=== PATIENT | female | born 1995 | race Caucasian/White ===

== ENCOUNTER 2022-04-17 17:33 | Emergency (ER) | payer SELFPAY ==
[~2022-04-17] VITALS: Ht 160 cm; Wt 77.3 kg
[2022-04-17 17:34] VITALS: TEMP 97.8
[2022-04-17 18:31] VITALS: BP 106/77; PULSE 96
== END 2022-04-17 18:31 | disposition home or self-care (01) ==
LOC: COL.ER 17:33
DX: S51.811A Laceration without foreign body of right forearm, initial encounter (principal); F17.210 Nicotine dependence, cigarettes, uncomplicated; Z91.040 Latex allergy status; Z28.310 Unvaccinated for COVID-19; W26.0XXA Contact with knife, initial encounter